=== PATIENT | female | born 1985 | race Caucasian/White ===

== ENCOUNTER 2018-04-06 23:10 | Emergency (ER) | payer BC ==
[~2018-04-06] VITALS: Ht 167.6 cm; Wt 74.8 kg
[2018-04-06 23:27] VITALS: BP 135/87
[2018-04-07] MEDS ORDERED: PREDNISONE 20 M20 MG PO (00:28)
[2018-04-07] MEDS ORDERED: VENTOLIN HFA 1818 GM INH (00:28)
[2018-04-07] MEDS ORDERED: DOXYCYCLINE 10100 MG PO (00:28)
== END 2018-04-07 00:49 | disposition home or self-care (01) ==
LOC: ER 23:10
DX: J20.9 Acute bronchitis, unspecified (principal); J32.9 Chronic sinusitis, unspecified